=== PATIENT | female | born 1990 ===

== ENCOUNTER 2018-07-30 11:46 | Emergency (ER) | payer OTHER ==
[2018-07-30 12:00] VITALS: RESP 20; O2SAT 100
--- NOTE | 2018-07-30 12:09 | C.PDOC ---
History Of Present Illness 28 y/o female presents to ED with c/o lightheadedness for 1 week worse today while at work. Patient states she had similar symptoms [address] Hutchins who prescribed medication that improved symptoms. Patient states she does not know medication name and has not followed up with Dr. Hutchins since. No back pain. Patient admits to dysuria over the past week as well. No abnl vaginal discharge or rash. No hx of STD. Uses condoms during sex. No chest pain or SOB. She denies fever, chills, headache, loc, trauma or any other complaints at this time. LMP 07/25/18 Normal PMD: Dr. Hutchins Time Seen by Provider: 07/30/18 12:08 Chief Complaint (Nursing): Dizziness/Lightheaded History Per: Patient History/Exam Limitations: no limitations Onset/Duration Of Symptoms: Days Current Symptoms Are (Timing): Still Present Past Medical History Reviewed: Historical Data, Nursing Documentation, Vital Signs Vital Signs: Last Vital Signs Temp 97.8 F 07/30/18 11:57 Pulse 68 07/30/18 11:57 Resp 20 07/30/18 11:57 BP 114/80 07/30/18 11:57 Pulse Ox 100 07/30/18 11:57 - Medical History PMH: HTN Surgical History: No Surg Hx Family History: States: No Known Family Hx - Social History Hx Alcohol Use: No Hx Substance Use: No - Immunization History Hx Tetanus Toxoid Vaccination: Yes Hx Influenza Vaccination: No Hx Pneumococcal Vaccination: Yes Review Of Systems Constitutional: Negative for: Fever, Chills, Weakness, Malaise Eyes: Negative for: Pain, Vision Change, Conjunctivae Inflammation, Eyelid Inflammation ENT: Negative for: Ear Pain, Ear Discharge, Nose Pain, Nose Congestion, Mouth Pain, Throat Pain Cardiovascular: Positive for: Light Headedness. Negative for: Chest Pain Respiratory: Negative for: Cough, Shortness of Breath, SOB with Excertion Gastrointestinal: Negative for: Nausea, Vomiting, Abdominal Pain, Constipation, Hematochezia, Hematemesis, Rectal Pain Genitourinary: Positive for: Dysuria. Negative for: Frequency, Incontinence, Hematuria, Vaginal Discharge, Vaginal Bleeding, Pelvic Pain, Rash Musculoskeletal: Negative for: Neck Pain, Shoulder Pain, Back Pain Skin: Negative for: Rash Neurological: Negative for: Weakness, Numbness Psych: Negative for: Anxiety Physical Exam - Physical Exam Appears: Non-toxic, No Acute Distress Skin: Warm, Dry, No Rash Head: Atraumatic, Normacephalic Eye(s): bilateral: Normal Inspection (No nystagmus) Oral Mucosa: Moist Neck: Normal ROM, Supple Cardiovascular: Rhythm Regular Respiratory: Normal Breath Sounds, No Rales, No Rhonchi, No Wheezing Gastrointestinal/Abdominal: Soft, No Tenderness, No Guarding, No Rebound Back: No CVA Tenderness Extremity: Normal ROM, No Pedal Edema, Capillary Refill (<2 seconds) Neurological/Psych: Oriented x3, Normal Speech, Normal Cognition, Normal Motor, Normal Sensation Gait: Steady ED Course And Treatment - Laboratory Results Result Diagrams: 07/30/18 13:44 07/30/18 13:44 O2 Sat by Pulse Oximetry: 100 (RA) Pulse Ox Interpretation: Normal Medical Decision Making 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 No vaginal d/c or abd pain. LMP normal. No chest pain or SOB. No fall or trauma. Normal neuro exam, well appearing, in NAD. Pending imaging. No CVAT. Plan: EKG, Blood work, POC urine ordered, IV fluids administered EKG: Sinus Bradycardia @53bpm . Normal intervals, No stemi 1444 UTI, no CVAT Well appearing on exam. mildly elevated TSH, no clinical indication of myxedema coma on my exam, can f/u outpt. Endorsed to pt to f/u w/ medicine for UTI and seek endocrine for thyroid abnl. Pt endorsed understanding and is agreeable. Disposition - Disposition Referrals: [facility] [Outside] [facility] [Outside] Disposition: HOME/ ROUTINE Disposition Time: 14:45 Condition: GOOD Additional Instructions: FOLLOWUP IN CLINIC. FOLLOWUP FOR YOUR UTI AND SEE ENDOCRINE PHYSICIAN WELL. LAMBERT DO, thank you for letting us take care of you today. Your provider was Armond Millard and you were treated for DIZZINESS. The emergency medical care you received today was directed at your acute symptoms. If you were prescribed any medication, please fill it and take as directed. It may take several days for your symptoms to resolve. Return to the Emergency Department if your symptoms worsen, do not improve, or if you have any other problems. Please contact your doctor or call one of the physicians/clinics you have been referred to that are listed on the Patient Visit Information form that is included in your discharge packet. Bring any paperwork you were given at discharge with you along with any medications you are taking to your follow up visit. Our treatment cannot replace ongoing medical care by a primary care provider outside of the emergency department. Thank you for allowing the [facility] team to be part of your care today. If you had an X-Ray or CT scan: A Radiologist will review the ED reading if any change in treatment is needed we will contact you. If you had a blood, urine, or wound culture: It will take several days for the results, if any change in treatment is needed we will contact you. If you had an STI test: It will take 48 hours for the results. Please call after 1 week if you have not heard back. Prescriptions: Nitrofurantoin Macrocrystal [Nitrofurantoin] 100 mg PO BID 5 Days #10 capsule Instructions: Urinary Tract Infections in Adults Forms: [employer] (Icelandic) Print Language: CAMEROONIAN - Clinical Impression Clinical Impression: UTI (urinary tract infection), Increased thyroid stimulating hormone level - Scribe Statement The provider has reviewed the documentation as recorded by the Sergioibkatie Mcneill All medical record entries made by the Sergioibkatie were at my direction and personally dictated by me. I have reviewed the chart and agree that the record accurately reflects my personal performance of the history, physical exam, medical decision making, and the department course for this patient. I have also personally directed, reviewed, and agree with the discharge instructions and disposition.
[2018-07-30 12:41] LABS: HCG,QUALITATIVE URINE NEGATIVE (NEGATIVE)
[2018-07-30 12:49] LABS: SQUAMOUS EPITHIAL 18 /hpf (0-5); URINE BACTERIA RARE (<OCC); URINE BILIRUBIN NEGATIVE (NEGATIVE); URINE BLOOD NEGATIVE (NEGATIVE); URINE CLARITY Hazy (Clear); URINE COLOR Yellow (YELLOW); URINE GLUCOSE (UA) NORMAL (Normal); URINE LEUKOCYTE ESTERASE 1+ Leu/uL (Negative); URINE PROTEIN NEGATIVE (NEGATIVE); URINE UROBILINOGEN NORMAL mg/dL (0.2-1.0)
[2018-07-30] MEDS ORDERED: Sodium Chloride 0.9% 1,000 ML IV ONE (13:20)
[2018-07-30] MEDS ORDERED: Sodium Chloride 0.9% 1,000 ML ONE (13:40)
[2018-07-30 13:50] LABS: BASO # 0.1 K/uL (0.0-0.2); BASO % 0.8 % (0.0-2.0); EOS # 0.2 K/uL (0.0-0.7); EOS % 2.1 % (0.0-4.0); LYMPH # 2.6 K/uL (1.0-4.3); LYMPH % 30.9 % (20.0-40.0); MEAN CELL VOLUME 80.6 fL (81.0-99.0); MEAN CORPUSCULAR HEMOGLOBIN 27.1 pg (27.0-31.0); MEAN CORPUSCULAR HGB CONC 33.6 g/dL (33.0-37.0); MEAN PLATELET VOLUME 7.9 fL (7.2-11.7); MONO # 0.6 K/uL (0.0-0.8); MONO % 6.5 % (0.0-10.0); NEUT # 5.1 K/uL (1.8-7.0); NEUT % 59.7 % (50.0-75.0); NRBC % 0.1 % (0.0-2.0); RBC 5.18 Mil/uL (3.80-5.20); WHITE BLOOD COUNT 8.5 K/uL (4.8-10.8)
[2018-07-30 14:04] LABS: ALB/GLOB RATIO 1.3 (1.0-2.1); ALBUMIN 4.6 g/dL (3.5-5.0); ALT/SGPT 18 U/L (9-52); AST/SGOT 23 U/L (14-36); BLOOD UREA NITROGEN 14 mg/dL (7-17); CALCIUM 9.7 mg/dl (8.6-10.4); GFR NON-AFRICAN AMERICAN > 60
[2018-07-30 15:11] VITALS: BP 106/72; PULSE 60; TEMP 97.9
--- NOTE | 2018-08-01 21:36 | CARD ---
APPROVED REPORT Date of service: 07/30/2018 EKG Measurement Heart [id number] <Conclusion> Sinus bradycardia Reversed V1 to V3 electrodes - Please repeat Abnormal ECG
== END 2018-07-30 15:11 | disposition home or self-care (01) ==
LOC: C.ER 11:46
DX: N39.0 Urinary tract infection, site not specified (principal); R79.89 Other specified abnormal findings of blood chemistry; I10 Essential (primary) hypertension
CPT/HCPCS: 80053; 81001; 82948; 84443; 84703; 85025; 87086; 96360; 99285; J7030